=== PATIENT | male | born 1960 | race Hispanic/Latino ===

== ENCOUNTER 2017-03-03 08:31 | Inpatient (IN) | payer BC ==
[2017-03-03] MEDS ORDERED: Sodium Chloride 0.9% 1,000 ML IV ONE (08:52)
[2017-03-03] MEDS ORDERED: Ciprofloxacin 400mg/200ml D5W 400 MG/200 ML BAG IV STA (09:02)
[2017-03-03] MEDS ORDERED: metroNIDAZOLE IV 500 mg/100 ml 500 MG/100 ML BAG IV STA (09:09)
--- NOTE | 2017-03-03 09:16 | C.PDOC ---
History Of Present Illness 56 y/o male presents to ED for evaluation of RLQ abdominal pain for the last 2 weeks. Pt states that he had abdominal CT scan done that showed diverticulitis with abscess. Notes that Dr. Sanchez had told him to report to ED for admission. Denies n/v/d, back pain, or fever. Time Seen by Provider: 03/03/17 08:41 Chief Complaint (Nursing): Abdominal Pain History Per: Patient History/Exam Limitations: no limitations Onset/Duration Of Symptoms: Days Current Symptoms Are (Timing): Still Present Location Of Pain/Discomfort: RLQ Radiation Of Pain To:: None Quality Of Discomfort: "Pain" Associated Symptoms: denies: Fever, Chills, Loss Of Appetite, Back Pain, Chest Pain, Constipation, Urinary Symptoms Exacerbating Factors: None Alleviating Factors: None Recent travel outside of the [place]: No Additional History Per: Patient Past Medical History Reviewed: Historical Data, Nursing Documentation, Vital Signs Vital Signs: Last Vital Signs Temp 98.1 F 03/03/17 08:33 Pulse 75 03/03/17 11:05 Resp 18 03/03/17 11:05 BP 128/91 H 03/03/17 11:05 Pulse Ox 97 03/03/17 11:05 Family History: States: Unknown Family Hx - Social History Hx Alcohol Use: Yes Hx Substance Use: No - Immunization History Hx Tetanus Toxoid Vaccination: No Hx Influenza Vaccination: Yes (02/2017) Hx Pneumococcal Vaccination: No Review Of Systems Except As Marked, All Systems Reviewed And Found Negative. Constitutional: Negative for: Fever, Chills Gastrointestinal: Positive for: Abdominal Pain. Negative for: Nausea, Vomiting , Diarrhea, Constipation Genitourinary: Negative for: Dysuria, Frequency, Hematuria Musculoskeletal: Negative for: Back Pain Physical Exam - Physical Exam Appears: Non-toxic, No Acute Distress Skin: Warm, Dry, No Rash Head: Atraumatic, Normacephalic Eye(s): bilateral: Normal Inspection, EOMI Oral Mucosa: Moist Neck: Normal ROM, Supple Chest: Symmetrical Cardiovascular: Rhythm Regular, No Murmur Respiratory: Normal Breath Sounds, No Rales, No Rhonchi, No Wheezing Gastrointestinal/Abdominal: Soft, Tenderness (mild lower abdominal tenderness), No Distention, No Guarding, No Rebound Back: No CVA Tenderness Extremity: Normal ROM, No Pedal Edema Neurological/Psych: Oriented x3, Normal Speech, Normal Cognition ED Course And Treatment - Laboratory Results Result Diagrams: 03/03/17 09:24 03/03/17 09:24 O2 Sat by Pulse Oximetry: 97 Progress Note: EKG, CXR, blood work, UA ordered and reviewed. Patient was given IV fluids, Cipro, and Flagyl. Medical Decision Making Medical Decision Making: Patient sent by Dr Sanchez for admission Disposition Discussed With Dr.: Tay Sanchez Jr. Doctor Will See Patient In The: Hospital - Disposition Disposition: HOSPITALIZED Disposition Time: 09:35 Condition: STABLE - POA Present On Arrival: None - Clinical Impression Clinical Impression: Diverticulitis - PA / PATIENT ACCESS REGISTRAR / Resident Statement MD/DO has reviewed & agrees with the documentation as recorded. - Scribe Statement The provider has reviewed the documentation as recorded by the Scribe Felicita Troy All medical record entries made by the Scribe were at my direction and personally dictated by me. I have reviewed the chart and agree that the record accurately reflects my personal performance of the history, physical exam, medical decision making, and the department course for this patient. I have also personally directed, reviewed, and agree with the discharge instructions and disposition.
--- NOTE | 2017-03-03 09:16 | RAD ---
HISTORY: SOB COMPARISON: No prior. TECHNIQUE: Chest PA and lateral FINDINGS: LUNGS: No active pulmonary disease. PLEURA: No significant pleural effusion identified. No pneumothorax apparent. CARDIOVASCULAR: Normal. OSSEOUS STRUCTURES: No significant abnormalities. VISUALIZED UPPER ABDOMEN: Normal. OTHER FINDINGS: None. IMPRESSION: No active disease.
[2017-03-03] MEDS ORDERED: Ciprofloxacin 400mg/200ml D5W 400 MG/200 ML BAG IVPB ONE (09:27)
[2017-03-03] MEDS ORDERED: Sodium Chloride 0.9% 1,000 ML ONE (09:27)
[2017-03-03] MEDS ORDERED: metroNIDAZOLE IV 500 mg/100 ml 500 MG/100 ML BAG ONE (09:28)
[2017-03-03 09:30] LABS: BASO % 0.4 % (0.0-2.0); EOS # 0.2 K/uL (0.0-0.7); EOS % 4.8 % (0.0-4.0); HEMATOCRIT 41.3 % (35.0-51.0); LYMPH # 0.8 K/uL (1.0-4.3); LYMPH % 18.9 % (20.0-40.0); MEAN CELL VOLUME 90.1 fL (80.0-94.0); MEAN CORPUSCULAR HEMOGLOBIN 31.7 pg (27.0-31.0); MEAN CORPUSCULAR HGB CONC 35.2 g/dL (33.0-37.0); MEAN PLATELET VOLUME 7.2 fL (7.2-11.7); MONO # 0.5 K/uL (0.0-0.8); MONO % 10.5 % (0.0-10.0); NRBC % 0.1 % (0.0-2.0); RED CELL DISTRIBUTION WIDTH 12.8 % (11.5-14.5); WHITE BLOOD COUNT 4.5 K/uL (4.8-10.8)
[2017-03-03 09:31] LABS: URINE BILIRUBIN NEGATIVE (NEGATIVE); URINE BLOOD NEGATIVE (NEGATIVE); URINE COLOR Yellow (YELLOW); URINE GLUCOSE (UA) NORMAL (Normal); URINE KETONE NEGATIVE (NEGATIVE); URINE LEUKOCYTE ESTERASE NEG Leu/uL (Negative); URINE PROTEIN NEGATIVE (NEGATIVE); URINE UROBILINOGEN NORMAL mg/dL (0.2-1.0)
[2017-03-03 09:40] LABS: CHLORIDE 97 mmol/L (98-107); POTASSIUM 4.6 mmol/L (3.6-5.2); SODIUM 137 mmol/L (132-148)
[2017-03-03 09:42] LABS: AST/SGOT 27 U/L (17-59); CARBON DIOXIDE 26 mmol/L (22-30); GFR AFRICAN-AMERICAN > 60
[2017-03-03 09:43] LABS: ALB/GLOB RATIO 1.4 (1.0-2.1); ALKALINE PHOSPHATASE 62 U/L (38-126); ALT/SGPT 29 U/L (21-72); BLOOD UREA NITROGEN 13 mg/dL (9-20); CALCIUM 9.2 mg/dl (8.6-10.4); GLUCOSE,RANDOM 101 mg/dL (75-110); TOTAL PROTEIN 7.3 g/dL (6.3-8.3)
[2017-03-03] MEDS ORDERED: Iohexol 240 (50 ml) PO PRN (11:44)
[2017-03-03] MEDS ORDERED: Ciprofloxacin 400mg/200ml D5W 400 MG/200 ML BAG IVPB SCH (12:00)
[2017-03-03] MEDS ORDERED: HYDROmorphone 0.5 mg/0.5 ml ISec IVP PRN (12:09)
--- NOTE | 2017-03-03 12:28 | CP.PCM.HP ---
History of Present Illness - History of Present Illness History of Present Illness: General Surgery Note for Dr. Sanchez "CC: Lower right abdominal pain for 3 weeks" HPI: Patient is a 56 year old male with no significant past medical history who presents today for right lower quadrant abdominal pain. He has had multiple episodes of this pain in the past year, but it has never lasted for longer than a week and has resolved spontaneously. This time since it was persisting for three weeks patient went to doctor and got a CT of the abdomen which showed diverticulitis with an abscess. Dr. Sanchez told the patient to come to the ED. Today patient says his pain has decreased to a 2/10. He describes the pain as a stabbing pain that comes and goes. The pain does not radiate. Patient denies any fevers, chills, shortness of breath, chest pain, nausea, vomiting, constipation, or diarrhea. Patient has been able to tolerate regular diet. PMHx: none Psurg: hernia repair 11/2014, colonoscopy about 5 years ago Famhx: father had pacemaker, brother- diabetes, other brother- from [place] at age 53 Allergies: NKDA Social: denies drugs and tobacco, drinks 1 bottle of wine or 4-5 beers per day, lives with and 2 children Present on Admission - Present on Admission Any Indicators Present on Admission: No History of DVT/PE: No History of Uncontrolled Diabetes: No Urinary Catheter: No Decubitus Ulcer Present: No Review of Systems - Constitutional Constitutional: absent: Chills, Excessive Sweating, Fever, Lethargy, Weakness - EENT Eyes: absent: Blurred Vision Nose/Mouth/Throat: absent: Dysphagia, Sore Throat - Cardiovascular Cardiovascular: absent: Chest Pain, Leg Edema, Palpitations - Respiratory Respiratory: absent: Dyspnea on Exertion, Wheezing, Pain on Inspiration - Gastrointestinal Gastrointestinal: Abdominal Pain. absent: Constipation, Diarrhea, Nausea, Vomiting - Genitourinary Genitourinary: absent: Difficulty Urinating, Hematuria, Nocturia - Musculoskeletal Musculoskeletal: absent: Back Pain, Muscle Weakness - Integumentary Integumentary: absent: Lesions, Rash - Neurological Neurological: absent: Dizziness - Psychiatric Psychiatric: absent: Confusion - Endocrine Endocrine: absent: Fatigue, Palpitations - Hematologic/Lymphatic Hematologic: absent: Easy Bleeding, Easy Bruising Past Patient History - Past Social History Smoking Status: Never Smoked - PSYCHIATRIC Hx Substance Use: No - SURGICAL HISTORY Hx Herniorrhaphy: Yes - ANESTHESIA Hx Anesthesia: Yes Hx Anesthesia Reactions: No Meds Allergies/Adverse Reactions: Allergies Allergy/AdvReac Type Severity Reaction Status Date / Time No Known Allergies Allergy Verified 03/03/17 08:36 Physical Exam - Constitutional Appears: Non-toxic, No Acute Distress - Head Exam Head Exam: ATRAUMATIC, NORMAL INSPECTION, NORMOCEPHALIC - Eye Exam Eye Exam: EOMI, Normal appearance - ENT Exam ENT Exam: Mucous Membranes Moist - Neck Exam Neck exam: Positive for: Full Rom. Negative for: Tenderness - Respiratory Exam Respiratory Exam: Clear to Auscultation Bilateral, NORMAL BREATHING PATTERN. absent: Rales, Rhonchi, Wheezes, Respiratory Distress, Stridor - Cardiovascular Exam Cardiovascular Exam: REGULAR RHYTHM, RRR. absent: Gallop, Rubs, Systolic Murmur - GI/Abdominal Exam GI & Abdominal Exam: Normal Bowel Sounds, Soft. absent: Firm, Guarding, Tenderness - Extremities Exam Extremities exam: Positive for: normal inspection. Negative for: calf tenderness, pedal edema - Neurological Exam Neurological exam: Alert, Oriented x3 - Psychiatric Exam Psychiatric exam: Normal Affect, Normal Mood - Skin Skin Exam: Intact, Normal Color, Warm Results - Vital Signs Recent Vital Signs: Last Vital Signs Temp 98.1 F 03/03/17 08:33 Pulse 75 03/03/17 11:05 Resp 18 03/03/17 11:05 BP 128/91 H 03/03/17 11:05 Pulse Ox 97 03/03/17 11:05 - Labs Result Diagrams: 03/03/17 09:24 03/03/17 09:24 Labs: Laboratory Results - last 24 hr 03/03/17 03/03/17 03/03/17 09:24 09:24 09:24 WBC 4.5 L RBC 4.58 Hgb 14.5 Hct 41.3 MCV 90.1 MCH 31.7 H MCHC 35.2 RDW 12.8 Plt Count 242 MPV 7.2 Neut % (Auto) 65.4 Lymph % (Auto) 18.9 L [place] % (Auto) 10.5 H Eos % (Auto) 4.8 H Baso % (Auto) 0.4 Neut # 2.9 Lymph # 0.8 L [place] # 0.5 Eos # 0.2 Baso # 0.0 PT 11.0 INR 1.0 Sodium Potassium Chloride Carbon Dioxide Anion Gap BUN Creatinine Est GFR ( Amer) Est GFR (Non-Af Amer) Random Glucose Calcium Total Bilirubin AST ALT Alkaline Phosphatase Total Protein Albumin Globulin Albumin/Globulin Ratio Lipase Urine Color Yellow Urine Clarity Clear Urine pH 8.0 Ur Specific [place] 1.011 Urine Protein Negative Urine Glucose (UA) Normal Urine Ketones Negative Urine Blood Negative Urine Nitrate Negative Urine Bilirubin Negative Urine Urobilinogen Normal Ur Leukocyte Esterase Neg Blood Type Antibody Screen 03/03/17 03/03/17 09:24 09:24 WBC RBC Hgb Hct MCV MCH MCHC RDW Plt Count MPV Neut % (Auto) Lymph % (Auto) [place] % (Auto) Eos % (Auto) Baso % (Auto) Neut # Lymph # [place] # Eos # Baso # PT INR Sodium 137 Potassium 4.6 Chloride 97 L Carbon Dioxide 26 Anion Gap 19 BUN 13 Creatinine 0.8 Est GFR ( Amer) > 60 Est GFR (Non-Af Amer) > 60 Random Glucose 101 Calcium 9.2 Total Bilirubin 1.0 AST 27 ALT 29 Alkaline Phosphatase 62 Total Protein 7.3 Albumin 4.2 Globulin 3.1 Albumin/Globulin Ratio 1.4 Lipase 22 L Urine Color Urine Clarity Urine pH Ur Specific [place] Urine Protein Urine Glucose (UA) Urine Ketones Urine Blood Urine Nitrate Urine Bilirubin Urine Urobilinogen Ur Leukocyte Esterase Blood Type O POSITIVE Antibody Screen Negative Assessment & Plan - Assessment and Plan (Free Text) Assessment: 56 year old male with RLQ abdominal pain and a CT of the abdomen showing diverticulitis with an abscess Plan: - IV antibiotics - pain control - CT abd/pelvis with PO and IV contrast - NPO after midnight - IR consulted, Dr. Heller, to drain abscess tomorrow d/w Dr. Sanchez
[2017-03-03] MEDS: Sodium Chloride 0.9% 1,000 ML IV SCH ×2 (12:52→22:00)
[2017-03-03] MEDS ORDERED: Iodixanol 320 MG/ML 100 ML BOTTLE IV ONE (15:49)
--- NOTE | 2017-03-03 16:35 | CT ---
PROCEDURE: CT Abdomen and Pelvis with oral and IV contrast. HISTORY: fluid collection/diverticulitis COMPARISON: None available. TECHNIQUE: Contiguous axial images of the abdomen and pelvis. Oral and IV contrast was administered. Coronal and Sagittal reformats generated and reviewed. Contrast dose: 100 cc Visipaque 320 Radiation dose: Total exam DLP = 1135.84 mGy-cm. This CT exam was performed using one or more of the following dose reduction techniques: Automated exposure control, adjustment of the mA and/or kV according to patient size, and/or use of iterative reconstruction technique. FINDINGS: LOWER THORAX: No visible consolidation, pleural effusion, or pneumothorax. Small hiatal hernia/distal esophageal wall thickening. LIVER: Hypoattenuation of the liver compatible with hepatic steatosis. GALLBLADDER AND BILE DUCTS: Unremarkable. PANCREAS: Unremarkable. SPLEEN: Unremarkable. ADRENALS: Unremarkable. KIDNEYS AND URETERS: The kidneys enhance symmetrically. No hydronephrosis or obstructing renal calculus. BLADDER: The urinary bladder appears unremarkable. REPRODUCTIVE: Unremarkable. APPENDIX: The appendix appears within normal limits of caliber. No secondary signs of acute appendicitis. BOWEL: The stomach is nondistended. The bowel loops appear within normal limits of caliber without evidence of intestinal obstruction. PERITONEUM: Abutting the right anterior abdominal wall is a contained appearing fluid collection which measures approximately 6.0 x 2.3 cm (axial image 107). No definite free air. LYMPH NODES: No bulky lymphadenopathy identified. VASCULATURE: Aneurysm of the right common iliac artery measuring approximately 2.6 x 2.3 cm (coronal image 66). No aortic aneurysm. BONES: Degenerative changes. OTHER FINDINGS: Bilateral hydroceles. Fat containing left inguinal hernia. IMPRESSION: 6.0 x 2.3 cm contained appearing fluid collection which abuts the right anterior abdominal wall. 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 Hypoattenuation of the liver compatible with hepatic steatosis. Small hiatal hernia/distal esophageal wall thickening.
[2017-03-03 17:23] VITALS: RESP 20
[2017-03-03] MEDS: metroNIDAZOLE IV 500 mg/100 ml 500 MG/100 ML BAG IVPB SCH (17:46)
[2017-03-03] MEDS: Ciprofloxacin 400mg/200ml D5W 400 MG/200 ML BAG IVPB SCH (22:00)
[2017-03-04] MEDS: Sodium Chloride 0.9% 1,000 ML IV SCH (01:50)
[2017-03-04] MEDS: metroNIDAZOLE IV 500 mg/100 ml 500 MG/100 ML BAG IVPB SCH ×2 (01:51→09:08)
[2017-03-04 07:01] LABS: BASO % 0.6 % (0.0-2.0); EOS # 0.3 K/uL (0.0-0.7); EOS % 6.4 % (0.0-4.0); HEMATOCRIT 37.9 % (35.0-51.0); LYMPH # 1.1 K/uL (1.0-4.3); LYMPH % 25.5 % (20.0-40.0); MEAN CELL VOLUME 90.6 fL (80.0-94.0); MEAN CORPUSCULAR HEMOGLOBIN 31.6 pg (27.0-31.0); MEAN CORPUSCULAR HGB CONC 34.9 g/dL (33.0-37.0); MEAN PLATELET VOLUME 7.3 fL (7.2-11.7); MONO # 0.4 K/uL (0.0-0.8); MONO % 10.2 % (0.0-10.0); NRBC % 0.1 % (0.0-2.0); RED CELL DISTRIBUTION WIDTH 12.6 % (11.5-14.5); WHITE BLOOD COUNT 4.2 K/uL (4.8-10.8)
[2017-03-04 07:32] LABS: CHLORIDE 101 mmol/L (98-107)
[2017-03-04 07:33] LABS: SODIUM 138 mmol/L (132-148)
[2017-03-04 07:34] LABS: POTASSIUM 4.4 mmol/L (3.6-5.2)
[2017-03-04 07:36] LABS: ALB/GLOB RATIO 1.3 (1.0-2.1); ALKALINE PHOSPHATASE 45 U/L (38-126); ALT/SGPT 31 U/L (21-72); AST/SGOT 21 U/L (17-59); BILIRUBIN,TOTAL 0.8 mg/dL (0.2-1.3); BLOOD UREA NITROGEN 13 mg/dL (9-20); CALCIUM 8.8 mg/dl (8.6-10.4); CARBON DIOXIDE 24 mmol/L (22-30); GFR AFRICAN-AMERICAN > 60; GLUCOSE,RANDOM 97 mg/dL (75-110); TOTAL PROTEIN 6.3 g/dL (6.3-8.3)
[2017-03-04 07:52] VITALS: BP 120/82; PULSE 76; TEMP 98.4; O2SAT 96
[2017-03-04] MEDS: Ciprofloxacin 400mg/200ml D5W 400 MG/200 ML BAG IVPB SCH ×2 (10:13→10:17)
--- NOTE | 2017-03-04 10:32 | DS ---
HISTORY OF PRESENT ILLNESS: The patient is a 56-year-old man admitted to the hospital with abdominal pain. A CAT scan was done, which suspected diverticulitis, inflammation, and abscess of fluid collection in the anterior abdominal wall. This was reviewed with Dr. Heller, interventional radiologist who requested to repeat the CAT scan. This was repeated and at this time it appears that part of the abnormality seen is bowel adherent to this rather than a large cyst or fluid collection. It is only about a centimeter area of collection on the right side, which he does not feel is amendable or suitable for biopsy. PLAN: At this time, our plan is to simply monitor the patient, he will be discharged home, not on any antibiotics. He has diverticular disease,but does not appear to have diverticulitis. So, in summary the patient is being discharged home. No antibiotics. He will follow up in the office. Mostly likely this represent visible adhesions on the anterior abdominal wall and this was reviewed with Dr. Heller, interventional radiologist. Tay Sanchez Jr., MD
--- NOTE | 2017-03-04 12:06 | CP.PCM.DIS ---
Provider - Provider Date of Admission: 03/03/17 08:57 Attending physician: Tay Jackson Jr, MD Time Spent in preparation of Discharge (in minutes): 25 Diagnosis - Discharge Diagnosis (1) Abdominal pain Status: Acute (2) Diverticulitis Status: Acute Hospital Course - Lab Results Lab Results: Most Recent Lab Values WBC 4.2 K/uL (4.8-10.8) L 03/04/17 06:56 RBC 4.18 Mil/uL (4.40-5.90) L 03/04/17 06:56 Hgb 13.2 g/dL (12.0-18.0) 03/04/17 06:56 Hct 37.9 % (35.0-51.0) 03/04/17 06:56 MCV 90.6 fL (80.0-94.0) 03/04/17 06:56 MCH 31.6 pg (27.0-31.0) H 03/04/17 06:56 MCHC 34.9 g/dL (33.0-37.0) 03/04/17 06:56 RDW 12.6 % (11.5-14.5) 03/04/17 06:56 Plt Count 226 K/uL (130-400) 03/04/17 06:56 MPV 7.3 fL (7.2-11.7) 03/04/17 06:56 Neut % (Auto) 57.3 % (50.0-75.0) 03/04/17 06:56 Lymph % (Auto) 25.5 % (20.0-40.0) 03/04/17 06:56 [place] % (Auto) 10.2 % (0.0-10.0) H 03/04/17 06:56 Eos % (Auto) 6.4 % (0.0-4.0) H 03/04/17 06:56 Baso % (Auto) 0.6 % (0.0-2.0) 03/04/17 06:56 Neut # 2.4 K/uL (1.8-7.0) 03/04/17 06:56 Lymph # 1.1 K/uL (1.0-4.3) 03/04/17 06:56 [place] # 0.4 K/uL (0.0-0.8) 03/04/17 06:56 Eos # 0.3 K/uL (0.0-0.7) 03/04/17 06:56 Baso # 0.0 K/uL (0.0-0.2) 03/04/17 06:56 PT 11.0 SECONDS (9.7-12.2) 03/03/17 09:24 INR 1.0 03/03/17 09:24 Sodium 138 mmol/L (132-148) 03/04/17 06:56 Potassium 4.4 mmol/L (3.6-5.2) 03/04/17 06:56 Chloride 101 mmol/L (98-107) 03/04/17 06:56 Carbon Dioxide 24 mmol/L (22-30) 03/04/17 06:56 Anion Gap 18 (10-20) 03/04/17 06:56 BUN 13 mg/dL (9-20) 03/04/17 06:56 Creatinine 0.8 MG/DL (0.8-1.5) 03/04/17 06:56 Est GFR ( Amer) > 60 03/04/17 06:56 Est GFR (Non-Af Amer) > 60 03/04/17 06:56 Random Glucose 97 mg/dL (75-110) 03/04/17 06:56 Calcium 8.8 mg/dl (8.6-10.4) 03/04/17 06:56 Total Bilirubin 0.8 mg/dL (0.2-1.3) 03/04/17 06:56 AST 21 U/L (17-59) 03/04/17 06:56 ALT 31 U/L (21-72) 03/04/17 06:56 Alkaline Phosphatase 45 U/L (38-126) 03/04/17 06:56 Total Protein 6.3 g/dL (6.3-8.3) 03/04/17 06:56 Albumin 3.5 g/dL (3.5-5.0) 03/04/17 06:56 Globulin 2.8 gm/dL (2.2-3.9) 03/04/17 06:56 Albumin/Globulin Ratio 1.3 (1.0-2.1) 03/04/17 06:56 Lipase 22 U/L (23-300) L 03/03/17 09:24 Urine Color Yellow (YELLOW) 03/03/17 09:24 Urine Clarity Clear (Clear) 03/03/17 09:24 Urine pH 8.0 (5.0-8.0) 03/03/17 09:24 Ur Specific [place] 1.011 (1.003-1.030) 03/03/17 09:24 Urine Protein Negative mg/dL (NEGATIVE) 03/03/17 09:24 Urine Glucose (UA) Normal mg/dL (Normal) 03/03/17 09:24 Urine Ketones Negative mg/dL (NEGATIVE) 03/03/17 09:24 Urine Blood Negative (NEGATIVE) 03/03/17 09:24 Urine Nitrate Negative (NEGATIVE) 03/03/17 09:24 Urine Bilirubin Negative (NEGATIVE) 03/03/17 09:24 Urine Urobilinogen Normal mg/dL (0.2-1.0) 03/03/17 09:24 Ur Leukocyte Esterase Neg [place]icky/uL (Negative) 03/03/17 09:24 Blood Type O POSITIVE 03/03/17 09:24 Antibody Screen Negative 03/03/17 09:24 - Hospital Course Hospital Course: Patient is a 56 year old male with no significant past medical history who presents today for right lower quadrant abdominal pain. Patient was told to come to the ED by Dr. Jackson for an outpatient CT of the abdomen which showed diverticulitis with an abscess. Interventional radiology, Dr. Heller was consulted for possible drainage of the fluid. Repeat CT in the hospital showed 6.0 x 2.3cm contained appearing fluid collection which abuts the right anterior abdominal wall. Dr. Heller decided this collection of fluid was too small to be drained. No surgical intervention was needed at this time. Patient to follow up with Dr. Jackson as an outpatient. Patient's pain has resolved and he is having no nausea, vomiting, constipation, or diarrhea. This is a summary of the hospital course, please see chart for full details. Discharge Exam - Head Exam Head Exam: ATRAUMATIC, NORMAL INSPECTION, NORMOCEPHALIC - Eye Exam Eye Exam: EOMI, Normal appearance - ENT Exam ENT Exam: Mucous Membranes Moist - Respiratory Exam Respiratory Exam: Clear to PA & Lateral, UNREMARKABLE - Cardiovascular Exam Cardiovascular Exam: REGULAR RHYTHM - GI/Abdominal Exam GI & Abdominal Exam: Soft. absent: Distended, Firm, Tenderness - Neurological Exam Neurological exam: Alert, Oriented x3 - Psychiatric Exam Psychiatric exam: Normal Affect, Normal Mood - Skin Skin Exam: Intact, Normal Color, Warm Discharge Plan - Follow Up Plan Condition: STABLE Disposition: HOME/ ROUTINE Instructions: Diverticulitis (DC), Diverticulitis (GEN)
== END 2017-03-04 11:15 | disposition home or self-care (01) | DRG 392 ==
LOC: C.ER 08:31 → C.9E 08:57 → C.3T 10:51
PROVIDERS: ADMIT Surgery Vascular Surgery; ATTEND Surgery Vascular Surgery
DX: K57.92 Diverticulitis of intestine, part unspecified, without perforation or abscess without bleeding (principal); K66.0 Peritoneal adhesions (postprocedural) (postinfection)